=== PATIENT | female | born 1935 | race Hispanic/Latino ===

== ENCOUNTER 2017-04-02 14:25 | Observation (INO) | payer MEDICARE ==
[~2017-04-02] VITALS: Ht 160 cm; Wt 32.8 kg
[~2017-04-02 14:25] MED LIST: AMITIZA24 MCG PO; AMLODIPINE BESY10 MG PO; ATORVASTATIN CA20 MG PO; METOPROLOL TART25 MG PO; OMEPRAZOLE40 MG PO; SIMETHICONE80 MG PO; SUCRALFATE1 GM PO; TRAZODONE HCL50 MG PO; ZYRTEC10 MG PO
[2017-04-02] MEDS ORDERED: CLONIDINE HCL 0.1 MG TAB ONE (14:55)
[2017-04-02] MEDS ORDERED: LEXAPRO10 MG PO (14:57)
[2017-04-02] MEDS ORDERED: POTASSIUM CHLO10 ME1 PO (14:57)
[2017-04-02] MEDS ORDERED: LOSARTAN POTASS25 MG PO (14:57)
[2017-04-02] MEDS ORDERED: AMITIZA24 MCG PO (14:57)
[2017-04-02 15:02] LABS: BASOPHILS % 0.3 % (0.0-1.0); EOSINOPHILS % 0.3 % (0.0-6.0); HEMATOCRIT 36.7 % (34.2-44.1); HEMOGLOBIN 12.3 g/dL (12.0-16.0); LYMPHOCYTES # (AUTO) 0.9 (1.0-3.2); LYMPHOCYTES % 14.1 % (18.0-39.1); MEAN CORPUSCULAR HEMOGLOBIN 33.2 pg (28-32); MEAN CORPUSCULAR HGB CONC 33.5 g/dL (31-35); MEAN CORPUSCULAR VOLUME 98.9 fL (81-99); MONOCYTES # (AUTO) 0.4 (0.2-0.8); MONOCYTES % 6.5 % (4.4-11.3); NEUTROPHILS # (AUTO) 4.7 (2.1-6.9); NEUTROPHILS % 78.3 % (38.7-80.0); PLATELET COUNT 293 x10e3/uL (140-360); RED BLOOD COUNT 3.71 x10e6/uL (3.6-5.1); RED CELL DISTRIBUTION WIDTH 14.7 % (11.7-14.4)
[2017-04-02 15:15] LABS: ANION GAP 13.6 mmol/L (8-16); BLOOD UREA NITROGEN 25 mg/dL (7-26); BUN/CREATININE RATIO 39 (6-25); CALCIUM 8.6 mg/dL (8.4-10.2); CARBON DIOXIDE 27 mmol/L (22-29); CHLORIDE 99 mmol/L (98-107); CREATINE KINASE 41 IU/L (29-168); CREATININE, SERUM 0.64 mg/dL (0.57-1.11); EST GLOMERULAR FILTRATION RATE > 60 ML/MIN (60-); GLUCOSE 130 mg/dL (74-118); POTASSIUM 3.6 mmol/L (3.5-5.1); SODIUM 136 mmol/L (136-145)
[2017-04-02 15:22] LABS: TROPONIN I 0.017 ng/mL (0-0.300)
[2017-04-02 15:26] LABS: BILIRUBIN,URINE 1+ (NEGATIVE); KETONES,URINE NEGATIVE (NEGATIVE); LEUKOCYTE ESTERASE ,URINE NEGATIVE (NEGATIVE); NITRITE,URINE NEGATIVE (NEGATIVE); URINE UROBILINOGEN 4 mg/dL (0.2 - 1)
--- NOTE | 2017-04-02 15:27 | Diagnostic Imaging Report ---
Portable chest x-ray CPT code 55825 INDICATION: Weakness, feels faint COMPARISON: Chest x-ray 03/03/2017, CT abdomen 05/20/2016 FINDINGS: Frontal view of the chest obtained at 1236 hours. Large hiatal hernia and cardiomegaly are redemonstrated. Aortic ectasia is stable. The pulmonary vascular marking are normal. The lungs demonstrate diffuse hyperinflation consistent with COPD. Eventration of the left diaphragm is stable. There is haziness of the lung bases suggestive of atelectasis. No large effusions. No pneumothorax. The osseous structures are diffusely demineralized. No focal osseous lesions. IMPRESSION: 1. Stable cardiomegaly without vascular congestion. 2. Large hiatal hernia. 3. COPD. Mild bibasilar atelectasis.. Signed by: Dr. Peter Moncada MD on 04/02/2017 3:24 PM
[2017-04-02] MEDS ORDERED: CLONIDINE HCL 0.1 MG TAB PO ONE (15:30)
[2017-04-02 15:35] LABS: CLARITY,URINE CLEAR (CLEAR); COLOR,URINE YELLOW (YELLOW); PROTEIN,URINE DIPSTICK 1+ (NEGATIVE)
[2017-04-02 15:46] LABS: BACTERIA,URINE FEW /HPF; EPITHELIAL CELLS,URINE FEW /LPF; RBC,URINE 0-5 /HPF (0-5); WBC,URINE (MAN) 0-5 /HPF (0-5)
[2017-04-02 15:47] LABS: AMORPHOUS SEDIMENT,URINE FEW (FEW); MUCUS,URINE FEW (RARE)
[2017-04-02] MEDS ORDERED: SODIUM CHLORIDE 0.9% 1000ML 1,000 ML IV SCH (16:05)
[2017-04-02] MEDS ORDERED: ONDANSETRON HCL INJ 2 MG/ML VIAL IV PRN ×2 (16:15→17:45)
[2017-04-02] MEDS ORDERED: ACETAMINOPHEN 325 MG TAB PO PRN (17:45)
[2017-04-02] MEDS ORDERED: HYDRALAZINE HCL 20 MG/ML VIAL IV PRN (17:45)
[2017-04-02 17:59] VITALS: BP 148/88
[2017-04-02] MEDS: SODIUM CHLORIDE 0.9% 1000ML 1,000 ML IV SCH (18:00)
[2017-04-02] MEDS ORDERED: MELATONIN 5 MG TABLET PO PRN (18:00)
[2017-04-02 18:12] VITALS: BP 148/88
[2017-04-02 18:14] VITALS: BP 148/88
[2017-04-02] MEDS: MEGACE 400MG/ 10ML CUP PO SCH (18:27)
[2017-04-02 20:00] VITALS: BP 124/80
[2017-04-02] MEDS: SUCRALFATE 1 GM TAB PO SCH (23:16)
[2017-04-03] VITALS: BP 141/76
--- NOTE | 2017-04-03 00:43 | History and Physical ---
CHIEF COMPLAINT: Generalized weakness. HPI: This is an 81-year-old female who has severe protein-calorie malnutrition, prior history of UTIs and multiple hospital admissions likely due to medical noncompliance who reports to the ED with nonspecific complaints of generalized weakness. Patient reports over the last several weeks, she has been very weak, having difficulty walking; and today, she reports feeling more weak and difficulty getting up out of her bed to walk. She denies any slurred speech, chest pain, palpitation or any limb weakness. She denies any recent fever or any dysuria or hematuria. Patient seems to be very noncompliant and reports eating well, but yet she weighs 70 pounds. Patient was seen and evaluated at bedside in the ER, currently clinically dehydrated, but her vital signs were stable. REVIEW OF SYSTEMS Pertinent positive: Generalized weakness. Pertinent negative: Denies any chest pain, palpitation, nausea, vomiting, diarrhea, dysuria, hematuria, frequency, urgency, lightheadedness, dizziness, abdominal pain, headache, shortness of breath or any other complaints. The rest of the 14-point review of systems have been reviewed with the patient and are negative. ALLERGIES: NO KNOWN DRUG ALLERGIES. HOME MEDICATIONS 1. Trazodone 50 mg daily. 2. Also takes Lexapro 10 mg daily. 3. Losartan 25 mg daily. 4. Amitiza 24 mcg p.o. b.i.d. 5. Metoprolol tartrate 25 mg p.o. b.i.d. 6. Protonix 40 mg p.o. b.i.d. PAST MEDICAL HISTORY: Hypertension, severe protein-calorie malnutrition, GERD, depression. SURGICAL HISTORY: None. FAMILY HISTORY: Hypertension, diabetes. SOCIAL HISTORY: Lives with her family. No drugs. No alcohol. Does not smoke. PHYSICAL EXAMINATION VITAL SIGNS: Temperature is 97.8, pulse 66, respiratory rate is 16, blood pressure 141/101, pulse ox 100% on room air. GENERAL: Not in acute distress. Alert and oriented times 3. Looks severely cachectic. HEENT: Head is normocephalic, atraumatic. Eyes: Pupils equal, round, and reactive to light bilaterally. Extraocular movements intact bilaterally. Throat: No evidence of any erythema or exudates in the posterior pharynx, has poor dentition. NECK: Supple with good range of motion. PULMONARY: Clear to auscultation bilaterally. No wheezing, no rales, no rhonchi. No crackles appreciated. CARDIOVASCULAR: Positive S1 and S2. No murmurs, rubs, or gallops appreciated. ABDOMEN: Soft, nondistended, and nontender on palpation. Bowel sounds are present. MUSCULOSKELETAL: Strength is 5/5 throughout. No evidence of any musculoskeletal deficit on examination. No weakness appreciated. NEUROLOGICAL: Cranial nerves II through XII grossly intact. No evidence of any neurological deficit on exam. SKIN: Intact. Warm to touch. Capillary refill is decreased. Oral mucosa dry. EXTREMITIES: Good range of motion throughout. LAB FINDINGS: White count 6, hemoglobin 12, hematocrit 37, platelets of 293,000. Chemistry: Sodium 136, potassium 3.6, chloride 99, bicarb 27, anion gap of 13, BUN is 25, creatinine is 0.6, glucose is 130, calcium 8.6. CK is 41, CK-MB 1.8 and troponin 0.017, all negative. Urinalysis: 1+ protein, 0-5 RBCs, 0-5 WBCs, negative nitrite, negative leukocyte esterase. Microbiology: Urine culture is pending. IMAGING STUDIES: Chest x-ray: A large hiatal hernia, otherwise no other acute findings. IMPRESSION 1. Generalized weakness likely due to underlying dehydration. 2. Dehydration and decreased capillary refill with skin tenting. 3. Hypertension. 4. Severe protein calorie malnutrition. PLAN: At this time, we are going to resume all her antihypertensive medications. We are going to add Ensure shakes with meals as well as Megace for appetite stimulant. Her generalized weakness is likely due to dehydration for which she will be on IV fluids for hydration. Also Megace and Ensure shakes and also we will start on PT and OT. We are going to resume all her home medications as well. Put her on Lovenox for prophylaxis. Continue IV fluids for dehydration. Will continue to monitor her under observation overnight as well. Job#: [id number] ELDON
[2017-04-03] MEDS: SODIUM CHLORIDE 0.9% 1000ML 1,000 ML IV SCH (02:15)
[2017-04-03] MEDS: HYDROCODONE/APAP 5MG-325MG TAB PO PRN ×2 (03:12→14:20)
[2017-04-03 04:00] VITALS: BP 131/69
[2017-04-03] MEDS: DEXTROSE 5%/0.9% SOD CHL 1,000 ML IV SCH ×3 (04:00→14:06)
[2017-04-03 06:44] LABS: BASOPHILS % 0.1 % (0.0-1.0); EOSINOPHILS % 0.6 % (0.0-6.0); HEMATOCRIT 33.7 % (34.2-44.1); HEMOGLOBIN 11.1 g/dL (12.0-16.0); LYMPHOCYTES # (AUTO) 0.4 (1.0-3.2); LYMPHOCYTES % 5.4 % (18.0-39.1); MEAN CORPUSCULAR HEMOGLOBIN 32.6 pg (28-32); MEAN CORPUSCULAR HGB CONC 32.9 g/dL (31-35); MEAN CORPUSCULAR VOLUME 98.8 fL (81-99); MONOCYTES # (AUTO) 0.3 (0.2-0.8); NEUTROPHILS # (AUTO) 6.1 (2.1-6.9); NEUTROPHILS % 88.6 % (38.7-80.0); PLATELET COUNT 253 x10e3/uL (140-360); RED BLOOD COUNT 3.41 x10e6/uL (3.6-5.1); RED CELL DISTRIBUTION WIDTH 14.3 % (11.7-14.4)
[2017-04-03 07:50] VITALS: BP 177/93
[2017-04-03 08:15] LABS: ANION GAP 8.6 mmol/L (8-16); BLOOD UREA NITROGEN 16 mg/dL (7-26); BUN/CREATININE RATIO 28 (6-25); CARBON DIOXIDE 30 mmol/L (22-29); CHLORIDE 98 mmol/L (98-107); CREATININE, SERUM 0.57 mg/dL (0.57-1.11); EST GLOMERULAR FILTRATION RATE > 60 ML/MIN (60-); GLUCOSE 90 mg/dL (74-118); POTASSIUM 3.6 mmol/L (3.5-5.1); SODIUM 133 mmol/L (136-145)
[2017-04-03] MEDS: METOPROLOL TARTRATE 25 MG TAB PO SCH ×2 (08:33→17:06)
[2017-04-03] MEDS: SUCRALFATE 1 GM TAB PO SCH ×3 (08:33→16:46)
[2017-04-03] MEDS: PANTOPRAZOLE SOD 40 MG TABEC PO SCH ×2 (08:33→16:46)
[2017-04-03] MEDS: LUBIPROSTONE 24 MCG CAP PO SCH ×2 (08:33→16:46)
[2017-04-03] MEDS: MEGACE 400MG/ 10ML CUP PO SCH (08:33)
[2017-04-03] MEDS ORDERED: LOSARTAN POTASSIUM 25 MG TAB PO SCH (09:00)
[2017-04-03] MEDS ORDERED: ESCITALOPRAM OXALATE 10 MG TAB PO SCH (09:00)
--- NOTE | 2017-04-03 10:53 | Diagnostic Imaging Report ---
Abdomen/KUB INDICATION: Pain COMPARISON: None. FINDINGS: Portable, supine image obtained at 1006 hours. The study is somewhat compromised due to patient's positioning. The bowel gas pattern is unremarkable. There are no dilated bowel loops. No pneumatosis. No free air on this supine image. No calcifications over the renal shadows or along the expected course of the ureters. The bones are diffusely demineralized. There is extra scoliosis of the lumbar spine. No evidence of destructive lesion. IMPRESSION: Unremarkable bowel gas pattern. Signed by: Dr. Peter Moncada MD on 04/03/2017 10:49 AM
[2017-04-03 12:45] VITALS: BP 130/67
[2017-04-03] MEDS ORDERED: ENOXAPARIN 30 MG/0.3 ML SYR SC SCH (17:00)
[2017-04-03 17:30] VITALS: BP 131/77
--- NOTE | 2017-04-04 02:19 | Discharge Summary ---
FINAL DISCHARGE DIAGNOSES: 1. Generalized weakness, likely due to dehydration. 2. Dehydration--resolved. 3. Hypertension. 4. Severe protein-calorie malnutrition. 5. Medical noncompliance. Patient will need long-term care as it seems that the family cannot or not able to manage her or care for her. CONSULTANTS: None. VITAL SIGNS: Temperature is 97.5, pulse 67, respiratory rate is 20, blood pressure is 130/67, pulse ox is 97% on nasal cannula. LAB FINDINGS: Showed white count 6.8, hemoglobin 11.1, hematocrit is 34, platelets of 253,000. Chemistry: Sodium 133, potassium 3.6, chloride 98, bicarb 30, anion gap of 8.6, BUN is 16, creatinine is 0.5, glucose is 90, calcium is 8. Troponins are negative x3. Vitamin B12 was 552 and TSH is 1.7. Urinalysis was negative. Urine was no growth. MICROBIOLOGY: Urine, no growth. IMAGING STUDIES: Chest x-ray showed a large hiatal hernia, which she has been evaluated by a CT surgeon and is not a surgical candidate. Some mild vascular congestion. Abdominal x-ray was normal. HOSPITAL COURSE: This is an 81-year-old female, who came in with complaints of generalized weakness, really no specific medical issues when she came in, is found to have severe dehydration. Patient reports generalized weakness for months. She does live with her son, who seems to be not able to take care of most of her medical needs. Patient is minimally ambulatory at home. She was found to be dehydrated with decreased cap refill, in which IV fluids were started. Patient has severe protein-calorie malnutrition and does not eat much. Patient was started on Megace with much improvement. Her blood pressure was better improved. In relation to dehydration, it all resolved with IV fluids with no other issues. While here, we used Megace for appetite stimulant as well as Ensure shakes for increasing caloric intake. In further discussion with the patient, she finally agreed that it seems that her son is not able to take care of her and she will like to benefit from a long-term, but in further discussion with the family, at this time they would like to take her home and they will search for a long-term as an outpatient. At this time, there are no other medical needs needed at the hospital. She is back to baseline, labs reviewed and stable. Her vital signs were stable prior to discharge home. She will be discharged on oral Megace for appetite stimulant, and the family is to find a long-term placement for her. On the day of discharge, vital signs were stable, labs reviewed and stable. Patient was seen, evaluated, and examined thoroughly on the day of discharge with no other complaints. Patient verbalized understanding and agrees with plan of care, to follow up accordingly as an outpatient with her primary care physician. DISPOSITION: To home. CONDITION: Stable. MEDICATIONS: See med reconciliation form including Megace 400 mg solution or 10 mL daily for appetite stimulant. DIET: Regular. FOLLOWUP: With her primary care physician in 1 week. In the event of any worsening symptoms, patient advised to come back to the ED for further evaluation. Discharge summary took greater than 35 minutes. CLAUDIA MERLOS MD Job#: [id number]
== END 2017-04-03 17:42 | disposition home or self-care (01) ==
LOC: ER 14:33 → ERHOLD 16:20 → IMCU 16:47
PROVIDERS: ADMIT Internal Medicine; ATTEND Internal Medicine
DX: E86.0 Dehydration (principal); R53.1 Weakness; I10 Essential (primary) hypertension; E43 Unspecified severe protein-calorie malnutrition; Z91.19 Patient's noncompliance with other medical treatment and regimen
CPT/HCPCS: 36415 ×2; 71010; 74000; 80048 ×2; 81001; 82550; 82553; 82607; 84443; 84484 ×2; 85025 ×2; 87086; 93005; 99284; G0378 ×2; J1650; J7030 ×2; J7042 ×2